=== PATIENT | male | born 1950 | race American Indian/Alaskan Native ===

== ENCOUNTER 2018-04-05 21:14 | Emergency (ER) | payer MEDICARE, OTHER ==
[~2018-04-05] VITALS: Ht 165.1 cm; Wt 77.0 kg
[~2018-04-05 21:14] MED LIST: ACETAMINOPHEN325 M1 PO; ADULT LOW DOSE81 MG PO; ALPRAZOLAM0.25 MG PO; ATIVAN1 MG PO; AUGMENTIN 875-1 EACH PO; CALCIUM + D3 E1 EACH PO; ERYTHROMYCIN3.5 GM OD; GABAPENTIN300 MG PO; LIPITOR20 MG PO; LORATADINE10 MG PO; METRONIDAZOLE250 MG PO; NAPROSYN500 MG PO; NUEDEXTA 20-101 EACH PO; QUETIAPINE FUM200 MG PO; QUETIAPINE FUMA25 MG PO; SEROQUEL XR150 MG PO; SEROQUEL100 MG PO; TOBREX5 ML OD; VISTARIL25 MG PO; VITAMIN B12-FO1 EACH PO; XANAX0.25 MG PO; ZIPRASIDONE HCL40 MG PO; ZOLPIDEM TARTRAT5 MG PO
[2018-04-05] MEDS ORDERED: ALPRAZOLAM0.25 MG PO (21:24)
[2018-04-05] MEDS ORDERED: OMEPRAZOLE20 MG PO (21:25)
[2018-04-05] MEDS ORDERED: GABAPENTIN300 MG PO (21:25)
[2018-04-05] MEDS ORDERED: ONCE DAILY1 EACH PO (21:26)
--- NOTE | 2018-04-06 13:56 | EKG ---
[facility] [address] [facility] [place] [address] Signed Normal sinus rhythm Normal ECG No previous ECGs available Confirmed by KWASI FERNÁNDEZ MD ([id number] on 04/06/2018 1:56:42 PM Electronically Signed By: KWASI FERNÁNDEZ MD 04/06/18 1356 PATIENT NAME: SONAL GARDINER Electrocardiogram DATE OF : 46 PHYSICIAN: KWASI FERNÁNDEZ MD REPORT #: [id number] REPORT IS CONFIDENTIAL AND NOT TO BE RELEASED WITHOUT AUTHORIZATION
== END 2018-04-05 23:36 | disposition home or self-care (01) ==
LOC: ED 21:14
DX: S09.90XA Unspecified injury of head, initial encounter (principal); F03.90 Unspecified dementia, unspecified severity, without behavioral disturbance, psychotic disturbance, mood disturbance, and anxiety; W19.XXXA Unspecified fall, initial encounter; G30.9 Alzheimer's disease, unspecified; Z86.73 Personal history of transient ischemic attack (TIA), and cerebral infarction without residual deficits; F41.9 Anxiety disorder, unspecified; E78.00 Pure hypercholesterolemia, unspecified; Z88.8 Allergy status to other drugs, medicaments and biological substances; Z79.899 Other long term (current) drug therapy
CPT/HCPCS: 70450; 80053; 85025; 93005; 93010; 99284

== ENCOUNTER 2018-06-14 15:20 | Emergency (ER) | payer MEDICARE, MEDICAID, OTHER ==
[~2018-06-14] VITALS: Ht 170.2 cm; Wt 68.0 kg
[~2018-06-14 15:20] MED LIST changes: +OMEPRAZOLE20 MG PO; +ONCE DAILY1 EACH PO
== END 2018-06-14 19:57 | disposition home or self-care (01) ==
LOC: ED 15:20
DX: G31.83 Neurocognitive disorder with Lewy bodies (principal); F02.81 Dementia in other diseases classified elsewhere, unspecified severity, with behavioral disturbance; Z86.73 Personal history of transient ischemic attack (TIA), and cerebral infarction without residual deficits; E78.00 Pure hypercholesterolemia, unspecified; F41.9 Anxiety disorder, unspecified; Z88.8 Allergy status to other drugs, medicaments and biological substances; Z79.899 Other long term (current) drug therapy
CPT/HCPCS: 80053; 81001; 85025; 96360; 96361; 99284; J7030; J7040

== ENCOUNTER 2018-06-28 20:27 | Emergency (ER) | payer MEDICARE, MEDICAID, OTHER ==
[~2018-06-28] VITALS: Ht 170.2 cm; Wt 68.0 kg
[2018-06-28] MEDS ORDERED: SEROQUEL25 MG (20:43)
[2018-06-28] MEDS ORDERED: REMERON15 MG PO (20:44)
--- NOTE | 2018-06-30 08:46 | NUR ---
CHW called and spoke with patient ex Minal. Who stated patient is set up with [facility]ervat Mor[facility] immigration case manager for an assessment on 07/11. CHW received a phone call from patient PCP Lester Pink who stated he was concerned about patient needing placement. CHW discussed with patient Minal about some helpful services through [facility] such as vocational adviser team at [facility] who can come help with patient in the home. Minal stated she has dealt with them before and does not want them in her house and or in her business and that they are never reliable.
--- NOTE | 2018-06-30 08:48 | NUR ---
CHW called and spoke with Mervat Morfin at [facility] and discussed the urgency of the assessment. Mervat Morfin was able to review her calendar and fit the patient in for an assessment on Tuesday 07/03 @ 3:00. CHW called patient ex Minal and let her know about the assessment time.
== END 2018-06-28 23:26 | disposition home or self-care (01) ==
LOC: ED 20:27
DX: F03.90 Unspecified dementia, unspecified severity, without behavioral disturbance, psychotic disturbance, mood disturbance, and anxiety (principal); R63.0 Anorexia; R63.4 Abnormal weight loss; Z86.73 Personal history of transient ischemic attack (TIA), and cerebral infarction without residual deficits; E78.00 Pure hypercholesterolemia, unspecified; Z41.9 Encounter for procedure for purposes other than remedying health state, unspecified; Z88.8 Allergy status to other drugs, medicaments and biological substances; Z79.899 Other long term (current) drug therapy
CPT/HCPCS: 71045; 80053; 85025; 85610; 85730; 96360; 96361; 99285; J7030